=== PATIENT | female | born 1990 | race American Indian/Alaskan Native ===

== ENCOUNTER 2016-08-15 20:59 | Emergency (ER) | payer MEDICAID, OTHER ==
[2016-08-15 21:18] VITALS: BP 143/68
--- NOTE | 2016-08-15 21:37 | EDM.PDOC ---
ED HPI HEAD INJURY - General Chief Complaint: Head Injury Stated Complaint: FELL AND HAS LUMP ON HEAD Time Seen by Provider: 08/15/16 21:26 Source of Information: Reports: Patient History Limitations: Reports: No limitations - History of Present Illness INITIAL COMMENTS - FREE TEXT/NARRATIVE: This 26 yo female patient reports to the ED with pain in her posterior neck, lower posterior thoracic spin and lumbar spine. The patient reports she fell yesterday while walking down the steps of her house. The patient has been experiencing increased pain since the time of the fall. The patient reports she has taken Tylenol and ibuprofen with no symptom relief. The patient reports she was seen at the [facility] at 1600 today, but was told to come to the emergency department. The patient denies any drug or ETOH use. The patient denies any possibility of . 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 [No Known Home Meds] 05/08/16 [History] Past Medical History - Past Health History Medical/Surgical History: Denies Medical/Surgical History Social & Family History - Tobacco Use Smoking Status *Q: Never Smoker Second Hand Smoke Exposure: No - Caffeine Use Caffeine Use: Reports: Coffee, Soda - Recreational Drug Use Recreational Drug Use: No ED ROS GENERAL - Review of Systems Review Of Systems: ROS reveals no pertinent complaints other than HPI. ED EXAM, HEAD INJURY - Physical Exam Exam: See Below Exam Limited By: No limitations General Appearance: alert, WD/WN, moderate distress Head: atraumatic, normocephalic Nexus Criteria: posterior, midline cervical tenderness. No: evidence of intoxication, altered level of consciousness, focal neurological deficit, painful distracting injuries Eyes: bilateral eye: EOMI, normal inspection, PERRL Ears: normal external exam, normal canal, hearing grossly normal, normal TMs Nose: normal inspection, normal mucousa, no blood Throat/Mouth: Normal inspection, Normal lips, Normal teeth, Normal gums, Normal oropharynx, Normal voice, No airway compromise Neck: limited range of motion, paraspinous muscle tender, spinous processes tender Respiratory: no respiratory distress, lungs clear, normal breath sounds, no accessory muscle use, chest non-tender Cardiovascular: normal peripheral pulses, regular rate, rhythm, no edema, no gallop, no JVD, no murmur, no rub GI/Abdominal Exam (Abbreviated): normal bowel sounds, soft, non tender, no organomegaly, no distention, no abnormal bruit, no mass (Female) Exam: Deferred Rectal (Female) Exam: Deferred Back Exam: paraspinal tenderness (lower T-spine and throughout the L-spine) Extremities: no evidence of injury, normal range of motion, non-tender, no pedal edema, pelvis stable 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, no motor/sensory deficits, alert, normal mood/affect, oriented x 3 Skin: Normal color, Warm/dry - Withams Coma Score Best Eye Response (Withams): (4) open spontaneously Best Verbal Response (Tran): (5) oriented Best Motor Response (Tran): (6) obeys commands Tran Total: 15 Course - Vital Signs Last Recorded V/S: Last Vital Signs Temp 36.7 C 08/15/16 21:17 Pulse 127 H 08/15/16 21:17 Resp 20 08/15/16 21:17 BP 143/68 H 08/15/16 21:17 Pulse Ox 100 08/15/16 21:17 - Orders/Labs/Meds Meds: Medications Discontinued Medications Generic Name Dose Route Start Last Admin Trade Name Freq PRN Reason Stop Dose Admin Cyclobenzaprine HCl 10 mg 08/15/16 22:08 Flexeril PO 08/15/16 22:09 ONETIME ONE Tramadol HCl 50 mg 08/15/16 22:08 Ultram PO 08/15/16 22:09 ONETIME ONE Departure - Departure Time of Disposition: 22:11 Disposition: Home, Self-Care 01 Condition: fair Clinical Impression: Neck muscle strain Qualifiers: Encounter type: initial encounter Qualified Code(s): S16.1XXA - Strain of muscle, fascia and tendon at neck level, initial encounter Strain of thoracic spine Qualifiers: Encounter type: initial encounter Qualified Code(s): S29.019A - Strain of muscle and tendon of unspecified wall of thorax, initial encounter Strain of lumbar spine Qualifiers: Encounter type: initial encounter Qualified Code(s): S39.012A - Strain of muscle, fascia and tendon of lower back, initial encounter Instructions: Thoracic Strain, [id number], Cervical Sprain, [id number], Lumbosacral Strain Forms: ED Department Discharge Care Plan Goals: The patient was advised of the examination, CT and x-ray results during the visit. The patient was given an oral dose of Tramadol (50 mg) and Flexeril (10 mg) while in the ED. The patient was discharged with a script for Tramadol (50 mg) #10 to take 1 by mouth 3 times per day as needed and Flexeril (10 mg) #10 to take 1 by mouth at bedtime. If the patient has any additional symptoms or concerns, the patient should follow-up with her primary care facility for continued evaluation and further management.
[2016-08-15] MEDS ORDERED: Cyclobenzaprine 10 MG Tab PO ONE (22:08)
[2016-08-15] MEDS ORDERED: traMADol 50 MG Tab PO ONE (22:08)
== END 2016-08-15 22:33 | disposition home or self-care (01) ==
LOC: DL.ED 20:59
DX: S16.1XXA Strain of muscle, fascia and tendon at neck level, initial encounter (principal); S29.019A Strain of muscle and tendon of unspecified wall of thorax, initial encounter; S39.012A Strain of muscle, fascia and tendon of lower back, initial encounter; Z88.8 Allergy status to other drugs, medicaments and biological substances; W10.9XXA Fall (on) (from) unspecified stairs and steps, initial encounter; Y92.009 Unspecified place in unspecified non-institutional (private) residence as the place of occurrence of the external cause
CPT/HCPCS: 72070; 72100; 72125; 99284; A9270; 99283

== ENCOUNTER 2021-03-13 18:39 | Emergency (ER) | payer MEDICAID, OTHER ==
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
[2021-03-13] MEDS ORDERED: Sodium Chloride 0.9% 1,000 ML IV ONE (20:14)
[2021-03-13 20:22] LABS: ANION GAP 13.4 mEq/L (7-13); CHLORIDE,CL 99 mmol/L (98-107); SODIUM,NA 133 mmol/L (136-145)
--- NOTE | 2021-03-13 21:07 | CR ---
PROCEDURE INFORMATION: Exam: XR Chest Exam date and time: 03/13/2021 8:45 PM Age: 30 years old Clinical indication: Sternal or substernal pain; Additional info: Wbc 16; Midsternal chest pain with fever 102 TECHNIQUE: Imaging protocol: XR of the chest. Views: 2 views. COMPARISON: CR CHEST 1 VIEW 03/16/2012 2:03 AM FINDINGS: Lungs: Patchy opacity in the right middle lobe. Pleural spaces: Unremarkable. No pleural effusion. No pneumothorax. Heart/Mediastinum: Unremarkable. No cardiomegaly. Bones/joints: Unremarkable. IMPRESSION: Right middle lobe pneumonia
[2021-03-13] MEDS ORDERED: Amoxicillin/Clavulanate K 875-125 MG Tab PO ONE (21:12)
[2021-03-13] MEDS ORDERED: Azithromycin 250 MG Tab PO ONE (21:14)
[2021-03-13] MEDS ORDERED: Ibuprofen 400 MG Tab PO ONE (21:15)
[2021-03-13 22:29] VITALS: BP 120/66; PULSE 104
== END 2021-03-13 22:28 | disposition home or self-care (01) ==
LOC: DL.ED 18:39
DX: J18.9 Pneumonia, unspecified organism (principal); Z20.822 Contact with and (suspected) exposure to COVID-19
CPT/HCPCS: 36415; 71046; 80053; 80307; 82150; 83605; 83690; 83880; 84484; 85025; 86140; 87635; 99285; A9270; J7030; U0002

== ENCOUNTER 2022-06-26 13:00 | Emergency (ER) | payer SELFPAY | END 2022-06-26 13:12 | disposition left against medical advice (07) | LOC: DL.ED 13:00 | DX: Z53.21 Procedure and treatment not carried out due to patient leaving prior to being seen by health care provider (principal) ==